=== PATIENT | female | born 1990 | race Caucasian/White ===

== ENCOUNTER 2018-07-13 08:37 | Outpatient (CLI) | payer OTHER ==
[2018-07-14 14:06] LABS: HIV AG/AB 4TH GEN NON-REACTIVE (NON-REACTIVE)
[2018-07-15 07:07] LABS: HSV 1 IGG TYPE SPECIFIC AB 40.3 index; HSV 2 IGG TYPE SPECIFIC AB 8.66 index
== END 2018-07-13 23:59 | disposition home or self-care (01) ==
LOC: LAB.WCP 08:37
PROVIDERS: ATTEND Family Medicine
DX: Z11.4 Encounter for screening for human immunodeficiency virus [HIV] (principal)
CPT/HCPCS: 36415; 81599; 86317; 86592; 86695; 86696; 87389; 87491; 87591

== ENCOUNTER 2018-07-14 08:00 | Outpatient (CLI) | payer OTHER | END 2018-07-14 23:59 | disposition home or self-care (01) | LOC: LAB.R 08:00 | PROVIDERS: ATTEND Family Medicine | DX: Z11.4 Encounter for screening for human immunodeficiency virus [HIV] (principal) | CPT/HCPCS: 87491; 87591 ==

== ENCOUNTER → 2019-03-28 | Outpatient (CLI) | payer OTHER ==
--- NOTE | 2019-03-28 15:03 | XRAY Report ---
Reason: COUGH WITH FEVER Procedure Date: 03/28/2019 Accession Number: [id number] / [id number] Procedure: WCP - Chest 2 View X-Ray CPT Code: 58633 FULL RESULT: EXAM: CHEST RADIOGRAPHY EXAM DATE: 03/28/2019 09:20 AM. CLINICAL HISTORY: COUGH WITH FEVER. COMPARISON: XR CHEST PA AND LAT 09/12/2010 12:25 AM. TECHNIQUE: 2 views. FINDINGS: Lungs/Pleura: No focal opacities evident. No pleural effusion. No pneumothorax. Normal volumes. Mediastinum: Heart and mediastinal contours are unremarkable. Other: Negative bony structures. IMPRESSION: Normal 2-view chest radiography. [facility]
== END ==
LOC: DI.WCP 08:45 → EDSTATUS 13:27
PROVIDERS: ATTEND Family Medicine
DX: R05 Cough (principal)
CPT/HCPCS: 71046